=== PATIENT | female | born 2000 | race Caucasian/White ===

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

== ENCOUNTER 2023-02-26 15:09 | Emergency (ER) | payer OTHER ==
[~2023-02-26] VITALS: Ht 160 cm; Wt 59.9 kg
[2023-02-26 16:34] LABS: HEMATOCRIT 36.1 % (36.0-45.00); HEMOGLOBIN 12.3 g/dL (12.0-15.00); MEAN CELL VOLUME 83.7 fL (80.00-100.00); MEAN CORPUSCULAR HEMOGLOBIN 28.5 pg (27.00-32.0); PLATELET COUNT 227 K/uL (150-450); RED BLOOD COUNT 4.31 M/uL (4.00-6.00)
[2023-02-26 16:41] LABS: URINE APPEARANCE Clear; URINE BILIRRUBIN Negative (NEGATIVE); URINE BLOOD Negative; URINE COLOR Yellow; URINE GLUCOSE Negative (NEGATIVE); URINE LEUKOCYTE Negative; URINE NITRATE Negative; URINE PROTEIN Trace (NEGATIVE)
[2023-02-26 16:42] LABS: URINE RBC 48.4 uL (0.0-20.8); URINE WBC 32.1 uL (0.0-23.2)
[2023-02-26 16:48] LABS: ALBUMIN 4.2 gm/dL (3.4-5.0); BILIRUBIN TOTAL 1.18 mg/dL (0.3-1.2); BILIRUBIN,CONJUGATED 0.35 mg/dL (0.0-0.2); BILIRUBIN,UNCONJUGATED 0.83 mg/dL (0.0-0.6); CALCIUM 9.3 mg/dL (8.5-10.1); CREATININE SERUM 0.9 mg/dL (0.55-1.02); GFR 79.82; GLOBULINA 3.6 G/DL (2.4-3.5); POTASSIUM 3.5 mEq/L (3.5-5.1); TOTAL PROTEIN 7.8 gm/dL (6.4-8.2)
== END 2023-02-26 21:12 | disposition home or self-care (01) ==
LOC: ER 15:09 → EMR PED 15:41
PROVIDERS: Emergency Medicine
DX: R17 Unspecified jaundice (principal); G43.809 Other migraine, not intractable, without status migrainosus; R39.89 Other symptoms and signs involving the genitourinary system